=== PATIENT | male | born 1995 | race Two or more races ===

== ENCOUNTER 2020-01-12 17:33 | Emergency (ER) | payer OTHER ==
[2020-01-12] MEDS ORDERED: Bupivacaine 0.5% 10 ML SDV INJECT ONE (18:20)
[2020-01-12] MEDS ORDERED: Lidocaine 1% 10 ML MDV INJECT ONE (18:20)
[2020-01-12] MEDS ORDERED: Diphtheria,Pertussis(Acell),Tetanus Vaccine 0.5 ML Syringe IM ONE (18:32)
--- NOTE | 2020-01-12 18:37 | EDM.PDOC ---
ED HPI GENERAL MEDICAL PROBLEM - General Chief Complaint: Upper Extremity Injury/Pain Stated Complaint: LT MIDDLE FINGER INJURY Time Seen by Provider: 01/12/20 17:49 Source of Information: Reports: Patient, RN Notes Reviewed History Limitations: Reports: No Limitations - History of Present Illness INITIAL COMMENTS - FREE TEXT/NARRATIVE: Patient is a 24-year-old male who presents to the ED for the evaluation of his left middle finger injury. Patient notes roughly 1 hour prior to arrival to the ER, he was helping his friend at his house, and ended up smashing his left distal fingertip with a hammer. This caused intense pain at the time of injury. He did not take any sort of pain medications prior to coming to the ER. Patient's not sure if he is up-to-date on his tetanus vaccine. Patient denies any numbness or tingling distal to the extremity, and can move it in all direction with little difficulty. Left Finger-Middle Pain Score (Numeric/FACES): 8 - Related Data Allergies Allergy/AdvReac Type Severity Reaction Status Date / Time No Known Allergies Allergy Verified 01/12/20 17:53 Home Meds: Home Meds Acetaminophen/HYDROcodone [[place] 325-5 MG] 1 tab PO Q6H PRN #10 tablet 01/12/20 [Rx] Cefdinir [Omnicef] 300 mg PO BID 7 Days #14 cap 01/12/20 [Rx] Past Medical History - Past Health History Medical/Surgical History: Denies Medical/Surgical History Social & Family History - Family History Family Medical History: Noncontributory - Tobacco Use Smoking Status *Q: Never Smoker Second Hand Smoke Exposure: No - Caffeine Use Caffeine Use: Reports: None - Recreational Drug Use Recreational Drug Use: No Review of Systems - Review of Systems Review Of Systems: Comprehensive ROS is negative, except as noted in HPI. ED EXAM, GENERAL - Physical Exam Exam: See Below Exam Limited By: No Limitations General Appearance: Alert, WD/WN, No Apparent Distress Respiratory/Chest: No Respiratory Distress, Lungs Clear, Normal Breath Sounds, No Accessory Muscle Use, Chest Non-Tender Cardiovascular: Normal Peripheral Pulses, Regular Rate, Rhythm, No Murmur Peripheral Pulses: 2+: Radial (L), Radial (R) Extremities: Other (See skin assessment for further detail.) Neurological: Alert, Oriented, Normal Cognition, No Motor/Sensory Deficits Psychiatric: Normal Affect, Normal Mood Skin Exam: Warm, Dry, Normal Color, No Rash, Other (Roughly 2 cm linear laceration to the distal aspect of the left fingertip, on the posteriolateral aspect) ED TRAUMA EXTREMITY PROCEDURES - Laceration/Wound Repair Left Posterior Lateral Distal Digit - 3rd (Middle) Lac/Wound Length In cm: 2 Appearance: Superficial, Linear, Clean Distal NVT: Neuro & Vascular Intact, No Tendon Injury Anesthetic Type: Digital Local Anesthesia - Lidocaine (Xylocaine): 1% Plain Local Anesthesia - Bupivicaine (Marcaine): 0.5% Plain Local Anesthetic Volume: 5cc Skin Prep: Chlorhexidine (Hibiciens), Saline Exploration/Debridement/Repair: Wound Explored, In a Bloodless Field, Explored to Base, No Foreign Material Found Closed With: Sutures Suture Size: 4-0 # of Sutures: 5 Suture Type: Prolene, Interrupted, Simple Sterile Dressing Applied: Nurse Tetanus Status Addressed: Yes (updated at todays visit) Complications: No - Splinting Left 3rd Digit Splint Site: Left middle finger Pre-Procedure NV Status: Normal Post-Procedure NV Status: Normal Splint Material: Aluminum-Foam Splint Design: Other (cage type splint) Applied & Form Fitted By: Nurse Provider Post-Splint Application NV Check: NV Status Normal, Good Position Complications: No Course - Vital Signs Last Recorded V/S: Last Vital Signs Temp 97.5 F 01/12/20 17:49 Pulse 57 L 01/12/20 17:49 Resp 14 01/12/20 17:49 BP 113/63 01/12/20 17:49 Pulse Ox 97 01/12/20 17:49 - Orders/Labs/Meds Orders: Active Orders 24 hr Category Date Time Status Vaccines to be Administered [RC] PER UNIT ROUTINE Care 01/12/20 18:32 Active Meds: Medications Discontinued Medications Generic Name Dose Route Start Last Admin Trade Name Freq PRN Reason Stop Dose Admin Bupivacaine HCl 10 ml 01/12/20 18:20 01/12/20 18:25 Sensorcaine-Mpf 0.5% INJECT 01/12/20 18:21 10 ml ONETIME ONE Administration Diphtheria/Tetanus/Acell Pertussis 0.5 ml 01/12/20 18:32 01/12/20 19:23 Adacel IM 01/12/20 18:33 0.5 ml .ONCE ONE Administration Lidocaine HCl 10 ml 01/12/20 18:20 01/12/20 18:25 Xylocaine 1% INJECT 01/12/20 18:21 10 ml ONETIME ONE Administration Departure - Departure Time of Disposition: 18:40 Disposition: Home, Self-Care 01 Condition: Good Clinical Impression: Open fracture of distal phalanx of finger of left hand Qualifiers: Encounter type: initial encounter Finger: middle finger Fracture alignment: displaced Qualified Code(s): S62.633B - Displaced fracture of distal phalanx of left middle finger, initial encounter for open fracture - Discharge Information *PRESCRIPTION DRUG MONITORING PROGRAM REVIEWED*: No *COPY OF PRESCRIPTION DRUG MONITORING REPORT IN PATIENT MERCEDEZ: No Prescriptions: Acetaminophen/HYDROcodone [[place] 325-5 MG] 1 tab PO Q6H PRN #10 tablet PRN Reason: Pain Cefdinir [Omnicef] 300 mg PO BID 7 Days #14 cap Instructions: Crush Injury of the Hand, [id number] Referrals: PCP,None [Primary Care Provider] - Forms: ED Department Discharge Additional Instructions: You have been evaluated in the ED for your left finger injury. Your x-ray demonstrated a distal tuft fracture of your left middle finger. You did have sutures placed at today's visit, these will need to be removed in roughly 10 to 14 days, you may return to the ER for removal or any clinic can provide removal. You were given a prescription for antibiotics, please take as directed, until gone unless told otherwise by different provider. You may take Tylenol 500 mg or ibuprofen 600mg q6 hrs for pain relief. Please do so until you have a tolerable level of pain with activity. Do not exceed 4000mg Tylenol, Do not exceed 3200mg ibuprofen in a 24 hour time period. You were given a prescription for a strong pain medication, hydrocodone/acetaminophen 5/325, please take 1 tab every 6 hours as needed for pain not relieved by Tylenol or ibuprofen alone. Please note this does contain Tylenol in it, so do not take more than 4000 mg in a 24-hour time span. These medications can be addictive, so please take as few as possible to achieve adequate pain control. These meds can also be quite constipating, recommend that you increase your oral fluid intake and take a stool softener like MiraLAX while taking these medications. Please call Ortho for follow-up and further evaluation Dr. Velez is our orthopedic surgeon, his office number is [phone]. Please call and set up an appointment as soon as possible for further management. Please return to ED if your symptoms should change or worsen. Sepsis Event Note (ED) - Evaluation Sepsis Screening Result: No Definite Risk - Focused Exam Vital Signs: Vital Signs Temp Pulse Resp BP Pulse Ox 01/12/20 17:49 97.5 F 57 L 14 113/63 97 - My Orders Last 24 Hours: My Active Orders 01/12/20 18:32 Vaccines to be Administered [RC] PER UNIT ROUTINE - Assessment/Plan Last 24 Hours: My Active Orders 01/12/20 18:32 Vaccines to be Administered [RC] PER UNIT ROUTINE
--- NOTE | 2020-01-12 19:32 | CR ---
Left 3rd finger: 4 views centered to the left 3rd finger were obtained. Displaced and mildly comminuted fracture is identified within the distal phalanx involving the tuft of the finger. Soft tissue injury is also noted. No proximal abnormality is seen. Impression: 1. Distal left 3rd finger injury as described above. Diagnostic code #3 This report was dictated in MDT
== END 2020-01-12 19:47 | disposition home or self-care (01) ==
LOC: JD.ED 17:33
DX: S62.633B Displaced fracture of distal phalanx of left middle finger, initial encounter for open fracture (principal); Z23 Encounter for immunization; W23.0XXA Caught, crushed, jammed, or pinched between moving objects, initial encounter; Y92.009 Unspecified place in unspecified non-institutional (private) residence as the place of occurrence of the external cause
CPT/HCPCS: 12001; 73140; 90471; 90715; 99283; J2001; J3490